=== PATIENT | female | born 1955 | race Caucasian/White ===

== ENCOUNTER → 2019-09-04 09:35 | Outpatient (BNVA) | payer SELFPAY | PROVIDERS: Family Provider Family Medicine; Visit Provider Nurse Practitioner Family | DX: I10 Essential (primary) hypertension (principal); Z78.9 Other specified health status; Z00.00 Encounter for general adult medical examination without abnormal findings; Z12.4 Encounter for screening for malignant neoplasm of cervix | CPT/HCPCS: 88175 ==

== ENCOUNTER → 2021-01-22 08:54 | Outpatient (BNVA) | payer MEDICARE, SELFPAY | PROVIDERS: Family Provider Family Medicine; PCP Nurse Practitioner Family; Visit Provider Nurse Practitioner Family | DX: F41.9 Anxiety disorder, unspecified (principal); L29.0 Pruritus ani; B37.3 Candidiasis of vulva and vagina; N76.0 Acute vaginitis; B96.89 Other specified bacterial agents as the cause of diseases classified elsewhere | CPT/HCPCS: 87070; 87205 ==

== ENCOUNTER → 2021-06-24 09:08 | Outpatient (BNVA) | payer MEDICARE, SELFPAY | PROVIDERS: Family Provider Family Medicine; PCP Nurse Practitioner Family; Visit Provider Podiatrist Foot & Ankle Surgery | DX: L84 Corns and callosities (principal); Q66.89 Other specified congenital deformities of feet | CPT/HCPCS: 99213; 99214 ==

== ENCOUNTER → 2021-08-21 08:52 | Outpatient (BNVA) | payer MEDICARE, SELFPAY | PROVIDERS: Family Provider Family Medicine; PCP Nurse Practitioner Family; Visit Provider Nurse Practitioner Family | DX: N39.0 Urinary tract infection, site not specified (principal); R31.9 Hematuria, unspecified | CPT/HCPCS: 81000; 87086 ==

== ENCOUNTER → 2021-08-31 09:35 | Outpatient (BNVA) | payer MEDICARE, SELFPAY | PROVIDERS: Family Provider Family Medicine; PCP Nurse Practitioner Family; Visit Provider Nurse Practitioner Family | DX: N39.0 Urinary tract infection, site not specified (principal); R31.9 Hematuria, unspecified; N93.9 Abnormal uterine and vaginal bleeding, unspecified; R10.2 Pelvic and perineal pain | CPT/HCPCS: 81000; 87070; 87077; 87086; 87184; 87205; 88175 ==

== ENCOUNTER 2021-10-01 13:54 | Outpatient (CLI) | payer MEDICARE, SELFPAY ==
--- NOTE | 2021-10-01 14:15 | US_ITS ---
WS: [id number] TRANSABDOMINAL PELVIC AND TRANSVAGINAL PELVIC ULTRASOUND HISTORY: R10.2 - Pelvic and perineal pain COMPARISON: None available. Uterus: 7.5 cm x 5.5 cm x 3.7 cm. Mild atrophy with coarse echotexture. There is mild increased vascu larity within the myometrium. Hypoechoic nodule in the posterior uterus measures 1.6 x 1.0 x 1.6 cm c onsistent with a fibroid. There are additional areas of variable echogenicity throughout the uterus. Endometrium: 1.3 cm. Abnormal appearance of the endometrium. The endometrium is thickened with mild i ncreased vascularity. Loss of the normal junctional zone. There are also a few small cystic areas or fluid along the endometrium. The abnormal echogenicity and thickening extends into the lower endometr ium toward the cervical segment. Neither ovary is identified. No adnexal mass. No free fluid. US/US pelvic with transvaginal IMPRESSION: 1. Abnormal endometrium. Endometrium is thickened in the postmenopausal patien t with loss of the normal junctional zone. Highly suspicious for neoplasm until proven otherwise. 2. Uterus is mildly atrophic and heterogeneous with at least one fibroid.
== END 2021-10-01 13:55 | disposition home or self-care (01) ==
LOC: RAD 13:55
PROVIDERS: Family Provider Family Medicine; PCP Nurse Practitioner Family; Visit Provider Nurse Practitioner Family
DX: R10.2 Pelvic and perineal pain (principal); R93.89 Abnormal findings on diagnostic imaging of other specified body structures
CPT/HCPCS: 76830; 76856

== ENCOUNTER → 2021-11-10 09:31 | Outpatient (BNVA) | payer MEDICARE, SELFPAY | PROVIDERS: Family Provider Family Medicine; PCP Nurse Practitioner Family; Visit Provider Nurse Practitioner Family | DX: N39.0 Urinary tract infection, site not specified (principal); N85.02 Endometrial intraepithelial neoplasia [EIN] | CPT/HCPCS: 81000; 87077; 87086; 87184 ==

== ENCOUNTER → 2021-11-24 14:09 | Outpatient (BNVA) | payer MEDICARE, SELFPAY | PROVIDERS: Family Provider Family Medicine; PCP Nurse Practitioner Family; Visit Provider Nurse Practitioner Family | DX: R31.9 Hematuria, unspecified (principal) | CPT/HCPCS: 87077; 87086; 87184 ==

== ENCOUNTER 2021-12-08 09:09 | Day surgery (SDC) | payer MEDICARE, SELFPAY ==
[2021-12-07 12:14] VITALS: BMI 34.5
[2021-12-08] VITALS (9 sets, daily range): BP systolic 152–199; BP diastolic 66–102; PULSE 75–100; RESP 14–19; TEMP 36.4–36.8; O2SAT 96–100
--- NOTE | 2021-12-08 08:01 | ANES.PREANE2 ---
Pre-Anesthetic Assessment Height/Weight: Height 1.68 m Weight 97.069 kg Preop Diagnosis: EIN Operation Date: 12/08/21 10:25 Proposed Procedures p Hysteroscopy, dilation and curettage with Myosure 92122, 00847, 64915,R93.89,N85.02(Not Applicable) - Dianna Elise MD s Dilation And Curettage (D&C)(Not Applicable) - Dianna Elise MD Familial anesthetic complications: None Was Beta Sabino taken within 24 hours: N/A Was Clonidine taken within 24 hours: N/A Social No alcohol and No tobacco Exam alert, oriented x 3, clear to auscultation bilaterally and regular rate & rhythm Airway Submandibular: within normal limits Cervical ROM: within normal limits Mallampati: Class I Dentition: full History/ROS No significant complaints Pulmonary None reported CV/HEM None reported BP elevated on admission to pre op None reported Endometrial neoplasia Hx of UTI Hepatic None reported GI None reported Metabolic Hyperlipidemia Obese [facility] [place] None reported Neuropsych None reported Anesthetic Plan ASA status: 2 Anesthesia: Anesthesia Evaluation and General Other: We discussed risk and benefits of general anesthesia including PONV, sore throat (sometimes severe), corneal abrasion, positioning and peripheral nerve injuries, life threatening allergic reaction, post operative ICU admission requiring prolonged intubation, stroke, heart attack, , and rare incidences of recall. Patient consents to proceed with general anesthesia. Plan pre op midazolam for severe anxiety, recheck BP. Plan diphenhydramine pre-op for PONV ppx. Risk of > 500 ml blood loss (7ml/kg in children): No Medications/Allergies Home Medications Medication Instructions Recorded Confirmed Last Taken Type Custom Molded Orthotics #1 ea 03/24/21 12/04/21 Unknown Rx nystatin 100,000 unit/gram topical 1 applic topical BID #30 grams 08/14/21 12/07/21 Unknown Rx cream hydrocortisone acetate 25 mg 25 mg AK DAILY #12 ea 10/09/21 12/07/21 Unknown Rx rectal suppository (Anusol-HC) hydrocortisone 2.5 % topical cream 1 applic AK DAILY PRN hemorrhoids 10/12/21 12/07/21 Unknown Rx with perineal applicator #30 grams (Proctosol HC) doxycycline hyclate 100 mg capsule 100 mg PO BID #28 caps 11/29/21 12/08/21 12/08/21 Rx fluoxetine 20 mg capsule 20 mg PO BID #60 caps 11/30/21 12/08/21 12/08/21 Rx hydroxyzine HCl 25 mg tablet 25 mg PO TID PRN Anxiety 12/08/21 12/08/21 11/24/21 History lisinopril 40 mg tablet 40 mg PO DAILY 12/08/21 12/08/21 12/07/21 History simvastatin 10 mg tablet 10 mg PO DAILY 12/08/21 12/08/21 12/07/21 History Allergies Allergy/AdvReac Type Severity Reaction Status Date / Time aspirin Allergy Unknown Verified 12/07/21 12:12 azithromycin Allergy Unknown Verified 12/07/21 12:12 ciprofloxacin [From Cipro] Allergy Unknown Verified 12/07/21 12:12 meloxicam [From Mobic] Allergy unknown Verified 12/07/21 12:12 Penicillins Allergy Unknown Verified 12/07/21 12:12 prednisone Allergy Unknown Verified 12/07/21 12:12 [facility] Anesthesia Medical History HTN (hypertension) Hyperlipidemia Family History Father Diabetes Heart disease Hypercholesteremia Hypertension Stroke Sister Thyroid disease Uterine cancer Mother Uterine cancer Denies family history of Colon cancer Ovarian cancer Breast cancer Social History Smoking and tobacco status: never smoked Data Anesthesia Cardiac Studies: No Data to Display
[2021-12-08] MEDS: sodium chloride 0.9% 1,000 ML 30 ML IV (09:56)
[2021-12-08] MEDS: midazolam 1 mg/mL INJ 2 mL 2 MG IVP (10:18)
[2021-12-08] MEDS: diphenhydrAMINE 50 mg/mL SDV 1mL 12.5 MG IVP (10:21)
--- NOTE | 2021-12-08 10:45 | W.PM.OPSUD ---
Surgery/Procedure H&P Update DATE OF PROCEDURE: December 08, 2021 DATE H&P PERFORMED: 12/04/21 H&P UPDATE INFORMATION: I have reviewed H&P completed within last 30 days, I have examined patient prior to procedure and No changes to prior documentation PREOP DIAGNOSIS: EIN PLANNED PROCEDURE: Operation Date: 12/08/21 10:25 Proposed Procedures p Hysteroscopy, dilation and curettage with Myosure 48454, 10979, 31959,R93.89,N85.02(Not Applicable) - Dianna Elise MD s Dilation And Curettage (D&C)(Not Applicable) - Dianna Elise MD Related Problem List Diagnoses (1) Endometrial intraepithelial neoplasia (EIN): (2) Endometrial thickening on ultrasound: (3) Pelvic pain: (4) Vaginal bleeding:
[2021-12-08] MEDS: ceFAZolin 2,000 MG in sodium chloride 0.9% (plus) 50 ML 100 MG IV (10:59)
--- NOTE | 2021-12-08 12:00 | PM.OP ---
Operative Report Date of procedure: December 08, 2021 Pre-op diagnosis: Preop Diagnosis EIN Post-op diagnosis: uterine masses, possible fibroids Procedure done: hysteroscopy, dilation and curettage with myosure Specimens removed/disposition: endometrial curettings, uterine fibroids to pathology Surgeon: Dianna Elise Anesthesia: General Estimated blood loss (mL): 25 IV fluids (mL): 700 Urine output (mL): 260 Complications: none Condition: stable Disposition: PACU Procedure: The patient was taken to the operating room where monitored anesthesia was administered and to be adequate. She was prepped and draped in the normal sterile fashion in the dorsal lithotomy position in [facility]. A weighted speculum was placed into the vagina and the anterior lip of the cervix grasped with a single-tooth tenaculum. The uterus was sounded to 8 cm. The cervix was dilated to 16 [place]. The hysteroscope was advanced into the endometrial cavity. There were multiple masses visualized. The MyoSure device was activated and the tissue was removed. Pictures were taken pre and post procedure. All instruments were removed. The patient tolerated the procedure well. Sponge lap and needle counts were correct x3. She was taken to the recovery room in stable condition.
--- NOTE | 2021-12-08 12:06 | PM.DCS ---
Discharge Providers Date of Admission: 12/08/21 Date of Discharge: December 08, 2021 Attending Provider at Discharge: Dianna Elise MD Primary Care Provider: CHELSEY Smalls Diagnoses at Discharge Discharge Diagnosis (1) Endometrial intraepithelial neoplasia (EIN): Status: Acute (2) Endometrial thickening on ultrasound: Status: Acute (3) Pelvic pain: Status: Acute (4) Vaginal bleeding: Status: Acute Hospital Course Hospital Course The patient was admitted for surgery. She did well postoperatively and was ready for discharge. Discharge Data Studies Completed and Pending Pending at discharge Category Date Time Status ES surgery / GI images Routine Exams 12/08/21 10:44 Taken Pathology: Surgical [PTH] Routine Pth 12/08/21 12:02 Ordered Vitals Last Vital Signs Temp 98.3 F 12/08/21 09:30 Pulse 75 12/08/21 10:32 Resp 18 12/08/21 09:30 BP 173/91 12/08/21 10:32 Pulse Ox 98 12/08/21 09:30 O2 Del Method 12/08/21 09:33 Discharge Plan Discharge Patient Disposition: Home Condition: Stable Prescriptions: Continued (DME) Custom Molded Orthotics See Rx Instructions .Route .MEDSUPPLY Qty: 1 0RF Rx Instructions: As directed by SAURABH&O hydrocortisone acetate [Anusol-HC] 25 mg suppository 25 mg NM DAILY Qty: 12 0RF doxycycline hyclate 100 mg capsule 100 mg PO BID Qty: 28 0RF nystatin 100,000 unit/gram cream 1 applic topical BID Qty: 30 0RF fluoxetine 20 mg capsule 20 mg PO BID Qty: 60 1RF Rx Instructions: administer in the morning and at noon/midday hydrocortisone [Proctosol HC] 2.5 % cream with perineal applicator 1 applic NM DAILY PRN (Reason: hemorrhoids) Qty: 30 0RF simvastatin 10 mg tablet 10 mg PO DAILY Rx Instructions: Take 1/2 (one-half) tablet by mouth once daily lisinopril 40 mg tablet 40 mg PO DAILY Rx Instructions: Take 1 tablet by mouth once daily hydroxyzine HCl 25 mg tablet 25 mg PO TID PRN (Reason: Anxiety) Discharge Orders: Discharge Order (Routine); Ordered 12/08/21 Ordered By: Dianna Elise Discharge Attestations Time Spent in Discharge Care*: less than 30 min Quality Metrics Clinical Quality Measures [ No reported AMI, CVA or VTE this stay] Coding Level of Care Code Acute Chg FW DC note Diagnoses Endometrial intraepithelial neoplasia (EIN) N85.02 Endometrial thickening on ultrasound R93.89 Pelvic pain R10.2 Vaginal bleeding N93.9
--- NOTE | 2021-12-08 12:19 | SUR.PHASEI ---
1204 PT TO PACU 5 AWAKES TO VOICE, PLACED ON 8L MASK WITH GOOD RESP EFFORT, NO DISTRESS NOTED MONITOR SR WITH NO ECTOPY NOTED, IV TO LT AC #20 PATENT TO 200ML NS AT KVO RATE PER GRAVITY. ID BRACELET TO LT WRIST , PT ID'D WITH 2 IDENTIFIERS, ABDOMEN SOFT WITH KRUPA PAD WITH SMALL AMT LT RED DISCHARGE, PT VERBALLY DEINIES PAIN AND NAUSEA, PT C/O OF URGENCY AND REQUESTS BED PEREZ, PT ASSITEDI IN ROLLING TO SIDE AND BEDPAN PLACED .
--- NOTE | 2021-12-08 12:56 | ANE.PACU2 ---
Inpatient post-anesthesia follow up: Airway intact: Yes Vital signs: Temperature 97.8 F Pulse Rate 86 Respiratory Rate 17 Blood Pressure 188/102 Pulse Oximetry 96 Oxygen Delivery Me thod Room Air Oxygen Flow Rate 8 Fraction of Inspir ed Oxygen Hydration adequate: Yes Nausea and vomiting: No Pain level: 5 Mental status: Baseline
[2021-12-08] MEDS: HYDROcodone-acetaminophen 5-325 mg Tablet 1 TAB PO (12:57)
[2021-12-14 07:56] LABS: Mismatch Repari Proteins-IHC See Report
== END 2021-12-08 13:50 | disposition home or self-care (01) ==
PROVIDERS: PCP Nurse Practitioner Family; Visit Provider Obstetrics & Gynecology
PROC: 0UDB8ZZ Extraction of Endometrium, Via Natural or Artificial Opening Endoscopic (ICD-10-PCS; CPT 58558; principal; 2021-12-08 10:15)
PROC: (CPT 58120; 2021-12-08 10:15)
DX: N85.02 Endometrial intraepithelial neoplasia [EIN] (principal); R93.89 Abnormal findings on diagnostic imaging of other specified body structures; R10.2 Pelvic and perineal pain; N93.9 Abnormal uterine and vaginal bleeding, unspecified; E78.5 Hyperlipidemia, unspecified; E66.9 Obesity, unspecified; Z68.34 Body mass index [BMI] 34.0-34.9, adult; I10 Essential (primary) hypertension
CPT/HCPCS: 58558; 88305; 88360; J1100; J1200; J2250; J2405; J2704; J3010; J7030

== ENCOUNTER → 2022-09-01 09:35 | Outpatient (BNVA) | payer MEDICARE, SELFPAY | PROVIDERS: PCP Nurse Practitioner Family; Visit Provider Nurse Practitioner Family | DX: I10 Essential (primary) hypertension (principal); E78.5 Hyperlipidemia, unspecified; L03.90 Cellulitis, unspecified | CPT/HCPCS: 80053; 80061 ==

== ENCOUNTER → 2023-02-07 08:27 | Outpatient (BNVA) | payer MEDICARE, SELFPAY | PROVIDERS: PCP Nurse Practitioner Family; Visit Provider Nurse Practitioner Family | DX: I10 Essential (primary) hypertension (principal) | CPT/HCPCS: 80053; 80061 ==

== ENCOUNTER 2023-04-13 11:30 | Outpatient (CLI) | payer MEDICARE, SELFPAY ==
--- NOTE | 2023-04-13 11:35 | XR_ITS ---
WS: [id number] XR chest 2V* [id number] REASON FOR EXAM: R05.9 - Cough, unspecified FINDINGS: No comparison. The heart and the mediastinum are within normal limits. Calcified granulomas disease in both hemithoraces. No acute or subacute pulmonary parenchymal or pleural abnormality. Mild to moderate degenerative spondylosis in the mid and lower thoracic spine. IMPRESSION: No acute/subacute chest abnormality.
== END 2023-04-13 11:31 | disposition home or self-care (01) ==
LOC: LAB 11:32
PROVIDERS: PCP Nurse Practitioner Family; Visit Provider Nurse Practitioner Family
DX: J06.9 Acute upper respiratory infection, unspecified (principal); I10 Essential (primary) hypertension
CPT/HCPCS: 71046; 80053; 85025

== ENCOUNTER → 2023-05-10 14:10 | Outpatient (BNVA) | payer MEDICARE, SELFPAY | PROVIDERS: PCP Nurse Practitioner Family; Referring Provider Nurse Practitioner Family; Visit Provider Internal Medicine Pulmonary Disease | DX: J82.83 Eosinophilic asthma (principal) | CPT/HCPCS: 36415; 82785; 86003; 99204 ==

== ENCOUNTER 2023-06-14 09:43 | Outpatient (CLI) | payer MEDICARE, SELFPAY | END 2023-06-14 09:44 | disposition home or self-care (01) | PROVIDERS: PCP Nurse Practitioner Family; Visit Provider Internal Medicine Pulmonary Disease | DX: R06.02 Shortness of breath (principal) | CPT/HCPCS: 94010; 94618; 94726; 94729 ==

== ENCOUNTER → 2023-06-21 13:14 | Outpatient (BNVA) | payer MEDICARE, SELFPAY | PROVIDERS: PCP Nurse Practitioner Family; Visit Provider Internal Medicine Pulmonary Disease | DX: R06.09 Other forms of dyspnea (principal); U09.9 Post COVID-19 condition, unspecified; J82.83 Eosinophilic asthma | CPT/HCPCS: 99214 ==

== ENCOUNTER → 2023-11-01 09:00 | Outpatient (BNVA) | payer MEDICARE, SELFPAY | PROVIDERS: PCP Nurse Practitioner Family; Visit Provider Nurse Practitioner Family | DX: I10 Essential (primary) hypertension (principal); R53.83 Other fatigue | CPT/HCPCS: 80053; 80061; 85025 ==

== ENCOUNTER 2023-12-13 12:30 | Outpatient (CLI) | payer MEDICARE, SELFPAY ==
--- NOTE | 2023-12-13 13:00 | XR_ITS ---
WS: [id number] SCREENING DEXA SCAN [place] CLINICAL INFORMATION: M81.0 - Age-related osteoporosis without current patholog... COMPARISON: None. FINDINGS: The L1-L4 bone mineral density measures 1.322 g/cm2. This corresponds to a T score score of 1.2 and Z score of 1.8. Left femoral neck bone mineral density measures 1.045 g/cm2. This corresponds to a T score of 0.3 and Z score of 0.9. Right femoral neck bone mineral density measures 0.965 g/cm2. This corresponds to a T score -0.3of an d Z score of 0.3. Mean femoral neck bone mineral density measures 1.005 g/cm2. This corresponds to a T score of 0.0 and Z score of 0.6. XR/XR DEXA axial skeleton* [id number] IMPRESSION: Normal bone mineralization. Patient's FRAX calculated 10 year probability for major osteoporotic fracture i s 11.9% and osteoporotic hip fracture is 0.7%.
== END 2023-12-13 12:31 | disposition home or self-care (01) ==
LOC: RAD 12:30
PROVIDERS: PCP Nurse Practitioner Family; Visit Provider Nurse Practitioner Family
DX: Z13.820 Encounter for screening for osteoporosis (principal); M81.0 Age-related osteoporosis without current pathological fracture
CPT/HCPCS: 77080; 80053; 80061; 85025

== ENCOUNTER → 2024-01-11 08:50 | Outpatient (BNVA) | payer MEDICARE, SELFPAY | PROVIDERS: PCP Nurse Practitioner Family; Referring Provider Nurse Practitioner Family; Visit Provider Nurse Practitioner Family | DX: D48.5 Neoplasm of uncertain behavior of skin (principal); L30.9 Dermatitis, unspecified; D36.11 Benign neoplasm of peripheral nerves and autonomic nervous system of face, head, and neck; D22.5 Melanocytic nevi of trunk; L82.1 Other seborrheic keratosis; L57.8 Other skin changes due to chronic exposure to nonionizing radiation | CPT/HCPCS: 11104; 11105; 99203 ==

== ENCOUNTER → 2024-01-24 10:52 | Outpatient (BNVA) | payer MEDICARE, SELFPAY | PROVIDERS: PCP Nurse Practitioner Family; Visit Provider Dermatology | DX: L66.11 Classic lichen planopilaris (principal); L72.11 Pilar cyst | CPT/HCPCS: 99213 ==

== ENCOUNTER → 2024-02-22 10:49 | Outpatient (BNVA) | payer MEDICARE, SELFPAY | PROVIDERS: PCP Nurse Practitioner Family; Visit Provider Nurse Practitioner Family | DX: I10 Essential (primary) hypertension (principal) | CPT/HCPCS: 80053; 80061 ==

== ENCOUNTER → 2024-04-09 08:51 | Outpatient (BNVA) | payer MEDICARE, SELFPAY | PROVIDERS: PCP Nurse Practitioner Family; Visit Provider Podiatrist Foot & Ankle Surgery | DX: Q66.89 Other specified congenital deformities of feet (principal); M24.571 Contracture, right ankle; M24.572 Contracture, left ankle | CPT/HCPCS: 99213 ==

== ENCOUNTER → 2024-07-02 08:28 | Outpatient (BNVA) | payer MEDICARE, SELFPAY | PROVIDERS: PCP Nurse Practitioner Family; Visit Provider Nurse Practitioner Family | DX: N39.0 Urinary tract infection, site not specified (principal); I10 Essential (primary) hypertension; E55.9 Vitamin D deficiency, unspecified | CPT/HCPCS: 80053; 80061; 81000; 82306; 84443 ==

== ENCOUNTER 2024-07-23 07:53 | Outpatient (CLI) | payer MEDICARE, SELFPAY ==
--- NOTE | 2024-07-23 08:30 | US_ITS ---
WS: [id number] ULTRASOUND THYROID TECHNIQUE: Ultrasound of the thyroid. CLINICAL INFORMATION: R79.89 - Other specified abnormal findings of blood chemi... COMPARISON: None. FINDINGS: Thyroid: Right and left thyroid lobes are normal in size and with slightly heterogeneous echotexture. No suspicious thyroid nodules are present. Right thyroid lobe: 4.5 cm x 1.4 cm x 1.6 cm Left thyroid lobe: 4.9 cm x 1.4 cm x 1.4 cm. Isthmus: 0.3 mm. Cervical lymphadenopathy: None. US/US thyroid [id number] IMPRESSION: 1. Normal thyroid size with slight heterogeneous echotexture. 2. No suspicious nodules.
[2024-07-23 09:09] LABS: Free T4 Free Thyroxine 1.16 ng/dL (0.82-1.77); Thyroid Stimulating Hormone 5.16 uIU/mL (0.27-4.20)
== END 2024-07-23 07:54 | disposition home or self-care (01) ==
PROVIDERS: PCP Nurse Practitioner Family; Visit Provider Nurse Practitioner Family
DX: R79.89 Other specified abnormal findings of blood chemistry (principal); I10 Essential (primary) hypertension
CPT/HCPCS: 36415; 76536; 84439; 84443; 84481

== ENCOUNTER → 2024-09-05 10:26 | Outpatient (BNVA) | payer MEDICARE, SELFPAY | PROVIDERS: PCP Nurse Practitioner Family; Visit Provider Nurse Practitioner Family | DX: E03.9 Hypothyroidism, unspecified (principal); E07.9 Disorder of thyroid, unspecified; R79.89 Other specified abnormal findings of blood chemistry | CPT/HCPCS: 84439; 84443 ==

== ENCOUNTER → 2024-11-07 10:10 | Outpatient (BNVA) | payer MEDICARE, SELFPAY | PROVIDERS: PCP Nurse Practitioner Family; Visit Provider Nurse Practitioner Family | DX: M25.50 Pain in unspecified joint (principal) | CPT/HCPCS: 84550; 85025 ==

== ENCOUNTER 2024-12-12 10:33 | Outpatient (CLI) | payer MEDICARE, SELFPAY ==
--- NOTE | 2024-12-12 10:43 | XRR_ITS ---
PROCEDURE INFORMATION: Exam: XR Right Foot Exam date and time: 12/12/2024 10:49 AM Age: 69 years old Clinical indication: Foot; Right; HX of clubbed feet, pain while walking x few months; Additional info: M79.671 - pain in right foot TECHNIQUE: Imaging protocol: Radiologic exam of the right foot. Views: 3 or more views. COMPARISON: No relevant prior studies available. FINDINGS: Bones/joints: There is no fracture or joint dislocation. Degenerative changes of the tibiotalar joint and midfoot are seen. Soft tissues: Normal. XR/XR foot RT min 3V* [id number] IMPRESSION: Degenerative changes of the tibiotalar joint and midfoot are seen.
== END 2024-12-12 10:34 | disposition home or self-care (01) ==
PROVIDERS: PCP Nurse Practitioner Family; Visit Provider Nurse Practitioner Family
DX: M79.671 Pain in right foot (principal); Z87.768 Personal history of other specified (corrected) congenital malformations of integument, limbs and musculoskeletal system; M19.071 Primary osteoarthritis, right ankle and foot; Z87.798 Personal history of other (corrected) congenital malformations
CPT/HCPCS: 73630

== ENCOUNTER → 2024-12-17 08:46 | Outpatient (BNVA) | payer MEDICARE, SELFPAY | PROVIDERS: PCP Nurse Practitioner Family; Visit Provider Nurse Practitioner Family | DX: I10 Essential (primary) hypertension (principal); R53.83 Other fatigue | CPT/HCPCS: 80053; 80061; 84443; 85025 ==

== ENCOUNTER → 2024-12-25 08:53 | Outpatient (BNVA) | payer MEDICARE, SELFPAY | PROVIDERS: PCP Nurse Practitioner Family; Visit Provider Podiatrist Foot & Ankle Surgery | DX: Q66.89 Other specified congenital deformities of feet (principal); M79.671 Pain in right foot; M24.573 Contracture, unspecified ankle; M77.41 Metatarsalgia, right foot; M77.42 Metatarsalgia, left foot | CPT/HCPCS: 99213 ==